=== PATIENT | male | born 1965 | race Caucasian/White ===

== ENCOUNTER 2024-10-03 08:55 | Outpatient (OUT) | payer SELFPAY ==
--- NOTE | 2024-10-03 09:02 | ECG_ITS ---
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
[2024-10-03 09:47] LABS: Basophils Percent Auto 0.5 % (0.2-2.0); Eosinophils Absolute Auto 0.3 10^3/uL (0.0-0.7); Eosinophils Percent Auto 3.9 % (0.9-7.0); Hematocrit 43.5 % (42.0-54.0); Hemoglobin 14.8 g/dL (14.0-18.0); Immature Granulocytes Abs Auto 0.02 10^3/uL (0.00-0.03); Immature Granulocytes Pct Auto 0.3 % (0.0-0.5); Lymphocytes Absolute Auto 1.8 10^3/uL (1.2-3.8); Lymphocytes Percent Auto 27.4 % (20.5-60.0); Mean Corpuscular Hemoglobin 29.9 pg (25.9-34.0); Mean Corpuscular Volume 87.9 fL (80.0-94.0); Mean Platelet Volume 8.8 fL (9.5-13.5); Monocytes Absolute Auto 0.7 10^3/uL (0.3-0.8); Neutrophils Absolute Auto 3.8 10^3/uL (1.4-6.5); Neutrophils Percent Auto 57.9 % (43.0-75.0); Platelet Count 194 10^3/uL (150-450); Red Blood Count 4.95 10^6/uL (4.70-6.10); Red Cell Distribution Width 12.5 % (11.0-15.0); White Blood Count 6.6 10^3/uL (4.0-11.0)
--- NOTE | 2024-10-03 09:48 | PM.PRESUREVA ---
History of Present Illness History of Present Illness Chief complaint: left spermatocele s/p left hydrocelectomy Narrative: Patient presents for presurgical testing with a chief complaint of of testicular pain. The patient states he has been self draining his testicle. He denies any urinary complaints at this time. He does have a history of hypertension and elevated cholesterol, and states he takes his carvedilol and amlodipine as directed but could not take his atorvastatin due to muscle aches. Review of Systems ROS Narrative REVIEW OF SYSTEMS: Negative except as stated in HPI, ten or more systems reviewed. Constitutional: No fever, chills, weakness ENT: No sore throat or epistaxis Cardiovascular: No edema, chest pain, palpitations, or activity intolerance Respiratory: No shortness of breath, cough, or wheezing Musculoskeletal: No joint pain or swelling Gastrointestinal: No abdominal pain, constipation, diarrhea, or vomiting Genitourinary: No dysuria or hematuria Neurological: No numbness, tingling, weakness, or headache Psychiatric: No mood changes [facility] (Updated 10/03/24 @ 09:38 by Mirtha Lockett NP) Hyperlipidemia ?E78.5 - Hyperlipidemia, unspecified (ICD-10) CAD (coronary artery disease) ?I25.10 - Atherosclerotic heart disease of [place] coronary artery without angina pectoris (ICD-10) Seasonal allergic rhinitis ?J30.2 - Other seasonal allergic rhinitis (ICD-10) Abnormal ECG ?R94.31 - Abnormal electrocardiogram [ECG] [EKG] (ICD-10) Sinusitis ?J32.9 - Chronic sinusitis, unspecified (ICD-10) Bronchitis ?J40 - Bronchitis, not specified as acute or chronic (ICD-10) Varicocele ?I86.1 - Scrotal varices (ICD-10) Male hypogonadism ?E29.1 - Testicular hypofunction (ICD-10) Hydrocele ?N43.3 - Hydrocele, unspecified (ICD-10) Spermatocele ?N43.40 - Spermatocele of epididymis, unspecified (ICD-10) Elevated PSA ?R97.20 - Elevated prostate specific antigen [PSA] (ICD-10) Arthritis ?M19.90 - Unspecified osteoarthritis, unspecified site (ICD-10) Kidney stones ?N20.0 - Calculus of kidney (ICD-10) Hypertension ?I10 - Essential (primary) hypertension (ICD-10) High cholesterol ?E78.00 - Pure hypercholesterolemia, unspecified (ICD-10) Surgical History (Updated 10/03/24 @ 09:38 by Mirtha Lockett NP) History of dental surgery ?Z92.89 - Personal history of other medical treatment (ICD-10) H/O arthroscopic knee surgery ?Z98.890 - Other specified postprocedural states (ICD-10) History of ERCP ?Z98.890 - Other specified postprocedural states (ICD-10) History of hernia repair ?Z98.890 - Other specified postprocedural states (ICD-10) ?Z87.19 - Personal history of other diseases of the digestive system (ICD-10) History of hydrocelectomy ?Z98.890 - Other specified postprocedural states (ICD-10) History of cardiac catheterization ?Z98.890 - Other specified postprocedural states (ICD-10) Family History (Updated 10/03/24 @ 09:22 by Mirtha Lockett NP) Other Family history of hypertension Family history of stroke Social History (Updated 10/03/24 @ 09:19 by Mirtha Lockett NP) Within the past year, how often did you have a drink containing alcohol: 2-4 times a month Smoking status: Former smoker Non-prescribed substance use: denies use Previous occupational history: [employer] Highest level of school completed/degree received: high school graduate Meds Home Medications and Allergies Home Medications ?Medication ?Instructions ?Recorded ?Confirmed ?Type amlodipine 10 mg tablet 10 mg PO DAILY 10/03/24 10/03/24 History carvedilol 6.25 mg tablet 6.25 mg PO Q12H 10/03/24 10/03/24 History Allergies Allergy/AdvReac Type Severity Reaction Status Date / Time atorvastatin Allergy hand pain Verified 10/03/24 09:18 guaifenesin Allergy skin Verified 10/03/24 09:18 irritation ciprofloxacin (From Cipro) AdvReac Unknown Verified 10/03/24 09:18 Exam Narrative Exam Narrative: Constitutional: Awake, alert, comfortable, well-appearing, nontoxic, interactive, vital signs as charted Head: Normocephalic, atraumatic Neck: Supple, normal appearance, normal range of motion, no meningeal signs, no lymphadenopathy Respiratory: No respiratory distress, breath sounds clear Cardiovascular: Regular rate and rhythm, strong and regular heart tones Abdomen: Nontender, normal bowel sounds, soft, no CVA tenderness Musculoskeletal: Normal gait, no swelling or edema Skin: No rashes or induration, no lesions, only visible skin inspected Neuro: No neurological deficits, normal sensation Psychiatric: Oriented ?3, normal affect Assessment and Plan Assessment and Plan (1) Elevated PSA: (2) Spermatocele: Plan TRUS biopsy and left simple orchiectomy scheduled with Dr. Castellanos October 12, 2024. Review of cardiology office note dated 02/08/2024 states patient had an elevated blood pressure in the office but declined addition of another medication. He states he did not start Crestor as directed and does not take his baby aspirin for CAD. Patient had an elevated blood pressure here in presurgical testing. Notified Cheri at Dr. Castellanos office that the patient will need cardiac clearance.
[2024-10-03 10:01] LABS: BUN Creatinine Ratio 11.1; Calcium 9.5 mg/dL (8.5-10.1); Carbon Dioxide 28.8 mmol/L (21.0-32.0); Chloride 104 mmol/L (98-107); Estimated GFR (African America >60 (>=60 mL/min/1.73m^2); Estimated GFR (Non-African Ame >60 (>=60 mL/min/1.73m^2); Glucose 101 mg/dL (74-106); Potassium 3.8 mmol/L (3.5-5.1); Sodium 141 mmol/L (136-145)
[2024-10-03 10:06] LABS: INR 0.95; Partial Thromboplastin Time 29.9 sec (22.3-36.2); Prothrombin Time 10.1 sec (9.0-11.6)
== END 2024-10-03 08:56 | disposition home or self-care (01) ==
LOC: PST 08:58
PROVIDERS: Visit Provider Urology
DX: Z01.810 Encounter for preprocedural cardiovascular examination (principal); Z01.812 Encounter for preprocedural laboratory examination; R97.20 Elevated prostate specific antigen [PSA]; N43.40 Spermatocele of epididymis, unspecified; I10 Essential (primary) hypertension
CPT/HCPCS: 80048; 85025; 85610; 85730; 93005; G0463

== ENCOUNTER 2024-10-12 10:43 | Day surgery (SDC) | payer SELFPAY ==
[2024-10-03 09:29] VITALS: BP 173/91; PULSE 66; TEMP 36.5; O2SAT 98; BMI 31.5
[2024-10-03 09:32] VITALS: BP 165/89
[2024-10-12] VITALS (10 sets, daily range): BP systolic 132–156; BP diastolic 71–92; PULSE 64–84; TEMP 36.6; O2SAT 92–96; BMI 28.6
--- OUTSIDE RECORDS SUMMARY | 2024-10-12 11:06 | XMS_ITS | CCD ---
Author Organization [facility] Care Team Providers Care Customer Service Leader Name Role Phone MARIOPATRICIA ALMA Andrew Primary Care Physician Heraclio Burton CASTELLANOS ., DR VALDEZ Admitting Unavailable MISC, DR WEN Primary Care Unavailable CASTELLANOS ., DR VALDEZ Consulting Unavailable CASTELLANOS ., DR VALDEZ Attending Unavailable ALMA TAVERAS Consulting Unavailable JOSEF DICKENS Consulting Unavailable CASTELLANOS ., DR VALDEZ Attending Unavailable REQUEST, DR NONE LISTED Primary Care Unavaila ble CASTELLANOS ., DR VALDEZ Admitting Unavailable CASTELLANOS ., DR VALDEZ Admitting Unavailable MISC, DR WEN Primary Care Unavailable CASTELLANOS ., DR VALDEZ Consulting Unavailable CASTELLANOS ., DR VALDEZ Attending Unavailable CASTELLANOS ., DR VALDEZ Attending Unavailable REQUEST, NONE LISTED Primary Care Unavaila ble CASTELLANOS ., DR VALDEZ Admitting Unavailable CASTELLANOS ., DR VALDEZ Consulting Unavailable LORENZA DE LEÓN Consulting Unavailable REQUEST, NONE LISTED Primary Care Unavaila ble CASTELLANOS ., DR VALDEZ Admitting Unavailable CASTELLANOS ., DR VALDEZ Consulting Unavailable CASTELLANOS ., DR VALDEZ Attending Unavailable CASTELLANOS, Quan Reid Attending Unavailable CASTELLANOS, Quan Reid Attending Unavailable CASTELLANOS, Quan Reid Attending Unavailable CASTELLANOS, Quan R Admitting Unavailable CASTELLANOS, Quan R Attending Unavailable CASTELLANOS, Quan R Attending Unavailable CASTELLANOS, Quan R Attending Unavailable CASTELLANOS, Quan R Admitting Unavailable CASTELLANOS, Quan Reid Attending Unavailable CASTELLANOS, Quan Reid Admitting Unavailable NELY MURILLO Referring Unavailable NURIA AN Attending Unavailable MOADALBERTO CUENCA Attending Unavailable CASTELLANOS, Quan Reid Attending Unavailable CASTELLANOS, Quan Reid Admitting Unavailable CASTELLANOS, Quan Reid Attending Unavailable Allergies Allergy Classification Reported Allergen(s) Allergy Type Date of Onset Reaction(s) Facility (16 sources) guaiFENesin; Translations: [guaifenesin] Drug Allergy 2 unknown [facility] Comment on above: Outside Source Comme nt: itching after several days of med (15 sources) Ciprofloxacin; Translations: [ciprofloxacin] Drug Allergy 3 rash, Eruption of skin (disorder) [facility] (1 source) guaiFENesin Drug Allergy [facility] Repository (1 source) atorvastatin; Translations: [ATORVASTATIN] Drug Allergy 4 [facility] Repository (1 source) rosuvastatin; Translations: [ROSUVASTATIN] Drug Allergy 5 [facility] Repository Medications Current Medications Medication Drug Class(es) Dates Sig (Normalized) Sig (Original) amLODIPine 10 mg oral tablet (12 sources) Dihydropyridine Calcium Channel Nehemias Start: 11-25-2021 take 1 mg by mouth once daily amLODIPine 10 mg Tab mg tab(s), Oral, Daily, Refills(s) 0 Start Date: 11/25/21 Status: Ordered atorvastatin 40 mg oral tablet (10 sources) HMG-CoA Reductase Inhibitor Start: 11-06-2022 atorvastatin 40 mg Tab Refills(s) 0 Start Date: 11/06/22 Status: Ordered Glucosamine (12 sources) Start: 11-28-2021 glucosamine Oral, Refills(s) 0 Start Date: 11/28/21 Status: Ordered Problems Problem Classification Problem Date Documented Date Episodic/Chronic Abdominal hernia (12 sources) Left inguinal hernia 11-28-2021 Episodic Calculus of urinary tract (20 sources) Kidney stone; Translations: [Personal history of urinary calculi] Onset: 10-16-2022 11-28-2021 Episodic Coronary atherosclerosis and other heart disease (2 sources) 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; Translations: [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] Onset: 10-04-2024 Chronic Disorders of lipid metabolism (2 sources) Mixed hyperlipidemia; Translations: [Mixed hyperlipidemia] Onset: 10-04-2024 Chronic Essential hypertension (15 sources) Hypertensive disorder; Translations: [Essential (primary) hypertension] Onset: 10-16-2022 11-28-2021 Chronic Genitourinary symptoms and ill-defined conditions (1 source) Nocturia; Translations: [NOCTURIA] Onset: 10-16-2022 Episodic Other diseases of veins and lymphatics (12 sources) Varicocele; Translations: [Scrotal varices] Onset: 11-06-2022 Episodic Other endocrine disorders (2 sources) Testicular hypofunction; Translations: [Testicular hypofunction] Onset: 04-21-2023 Chronic Other endocrine disorders (8 sources) Male hypogonadism 04-21-2023 Chronic Other female genital disorders (8 sources) Disorder of reproductive system 04-21-2023 Episodic Other male genital disorders (6 sources) Hydrocele of testis; Translations: [Hydrocele, unspecified] Onset: 11-28-2021 Episodic Other male genital disorders (3 sources) Cyst of testis 11-28-2021 Episodic Other male genital disorders (12 sources) Disorder of male genital organ 11-28-2021 Episodic Other male genital disorders (5 sources) Hydrocele, unspecified; Translations: [HYDROCELE UNSPECIFIED] Onset: 10-08-2022 Episodic Other male genital disorders (5 sources) Spermatocele; Translations: [Spermatocele of epididymis, unspecified] Onset: 08-28-2024 08-28-2024 Episodic Other screening for suspected conditions (not mental disorders or infectious disease) (4 sources) Encounter for screening for malignant neoplasm of prostate; Translations: [Screening for malignant neoplasm done] Onset: 08-28-2024 Episodic Other upper respiratory infections (4 sources) Chronic sinusitis; Translations: [Chronic sinusitis, unspecified] Onset: 04-20-2022 11-28-2021 Chronic Residual codes; unclassified (1 source) Past history of procedure; Translations: [Other specified postprocedural states] Onset: 08-28-2024 Episodic Spondylosis; intervertebral disc disorders; other back problems (1 source) Cervicalgia Episodic Unclassified (1 source) CONTACT W/AND (SUSP) EXPOS COVID-19; Translations: [CONTACT W/AND (SUSP) EXPOS COVID-19] Onset: 04-20-2022 Unclassified (4 sources) Patient encounter status 08-28-2024 Results Test Name Value Interpretation Reference Range Facility Office Visiton 10-04-2024 Follow-up visit [id number] Jah Byers 1965 M Date Provider Department Iron 10/04/2024 ADALBERTO HUNT [facility] Family History Problem Relation Age of Onset Stroke Mother Clotting disorder Mother Hypertension Father Hypertension Sister Family Status - Relation Status Age at Mother Father Sister Level of Service:30316 [place] OFFICE/OUTPATIENT ESTABLISHED MOD MDM 30 MIN Reason for Visit and Comments: Follow-up [179409] Pre-op Exam [[id number]] Normal [facility] Lab - Other Lab [facility] Lab - Other Lab Results [id number]# 1.00OTGTIFF [facility] Ambulatory Visit Summaryon 0 09-13-2024 Ambulatory Visit Summary Ambulatory Visit Summary JAH BYERS :1965 Visit Date:09/13/2024 Ambulatory Visit Instructions Your Care Team Attending Physician - HEATHER VELA, Quan Reid Primary Care Physician - ROSEANNA VELA, ALMA Morales This Is Your Medications List amlodipine (amLODIPine 10 mg Tab) atorvastatin (atorvastatin 40 mg Tab) glucosamine Procedures Performed Left hydrocelectomy (10/08/2022), History of hernia repair (10/22/2021), ERCP (08/09/1984). What to do next Scheduled Follow-Up Appointments Wednesday 9:15 AM EDT With: HEATHER VELA, Quan Reid Where: [facility] [place] [id number]- Medications What How Much When Instructions Unchanged amlodipine (amLODIPine 10 mg Tab) Every day Unchanged atorvastatin (atorvastatin 40 mg Tab) Unchanged glucosamine Allergies ciprofloxacin (Eruption) guaiFENesin (unknown) Problems Ongoing - Any problem that you are currently receiving treatment for. History of kidney stones Hydrocele Hypertension Hypogonadism male Kidney stones Left hydrocele Left inguinal hernia Screening PSA (prostate specific antigen) Spermatocele Status post repair of hydrocele Varicocele Patient Survey You may receive a survey via text or e-mail asking about your office visit. Please share your experience with us by completing your survey. We appreciate your feedback and thank you for choosing us for your care. Normal [facility] CHEMISTRYOrdered By: SYSTEM SYSTEM on 09-13-2024 Free PSA [Mass/Vol] 0.3 ng/mL Invalid Interpretation Code Remisol Chem Comment on above: Interpretive Data: T he concentration of free PSA and total PSA determined with assays from different manufacturers can vary due to differences in assay methods and specificity. Values obtained with different staff psychiatrist's assays cannot be used interchangeably. The methodology used to obtain this result was chemiluminescence using Eli Washington's Access Hybritech PSA reagent and Access Hybritech free PSA reagent. Free PSA/Total PSA [Mass fraction] 12.0 % Low >=25.0% Remisol Chem Prostate specific Ag [Mass/Vol] 2.5 ng/mL Normal 0.1 - 3.5 ng/mL Remisol Chem Comment on above: Interpretive Data: T he concentration of PSA determined by different manufacturers can vary due to differences in assay methods and reagent specificity. Values obtained from different assay methods cannot be used interchangeably. The methodology used for this result was chemiluminescence using Eli Hilda's Access Hybritech PSA reagent. Lab - Other Lab [facility] Lab - Other Lab Results [id number]# 1.00OTGTIFF [facility] CHEMISTRYOrdered By: SYSTEM SYSTEM on 08-28-2024 Prostate specific Ag [Mass/Vol] 2.6 ng/mL Normal 0.1 - 3.5 ng/mL Remisol Chem Comment on above: Interpretive Data: T he concentration of PSA determined by different manufacturers can vary due to differences in assay methods and reagent specificity. Values obtained from different assay methods cannot be used interchangeably. The methodology used for this result was chemiluminescence using Eli Hilda's Access Hybritech PSA reagent. PSA Totalon 08-28-2024 Prostate specific Ag [Mass/Vol] 2.6 ng/mL Normal 0.1-3.5 [facility] Comment on above: Result Comment: The concentration of PSA determined by different manufacturers can vary due to differences in assay methods and reagent specificity. Values obtained from different assay methods cannot be used interchangeably. The methodology used for this result was chemiluminescence using Eli Washington's Access Hybritech PSA reagent. Performed By: #### 1 [id number] #### [facility] [address] [place] [address] Urology Office/Clinic Noteon 08-28-2024 Urology Office/Clinic Note Urology Office/Clinic Note Chief Complaint hydrocele HPI Staff 59yr old male pt here to discuss hydrocele & possible removal. Pt has been draining 1x per week. Would like to discuss cause of it. Wants to make sure hernia surgery about 4yrs ago did not cause hydrocele. Pt refused to provide urine sample today. Previous Dx: left hydrocele S/P left hydrocelectomy done 10/08/22, IO hydrocele aspiration 70 cc 04/21/23 Dysuria: denies Incomplete bladder emptying: denies Hematuria: denies Frequency: denies Urgency: denies Nocturia: denies Stream: good stream Leaking: denies Post void dripping: denies Wearing pads/ Depends: denies Urge incontinence: denies Stress incontinence: denies Incontinence without Sensory Awareness: denies Abdominal pain: denies Flank pain: denies Sexual complaints: _ History of Present Illness Tests reviewed: none I have reviewed the previous health record information and history for this patient from Dr. Castellanos. I have reviewed and verified the staff HPI to be accurate for this encounter. Review of Systems PHQ Score Initial Depression Screen Score: 2 SCORE ROS - Provider Constitutional: denies weight loss, denies hot flashes. Eyes: denies eye problems. Gastrointestinal: denies nausea, denies vomiting. Cardiovascular: denies chest pain or angina. Integumentary: no dryness Musculoskeletal: denies musculoskeletal symptoms. ENMT: denies otolaryngeal symptoms. Respiratory: no shortness of breath. Heme/Lymph: denies easy bleeding tendency, denies easy bruising tendency. Psychiatric: no confusion, no anxiety. Genitourinary: See HPI. Physical Exam Vitals & Measurements T: 37 ???C(Oral) HR: 73(Peripheral) RR: 18 BP: 134/79 HT: 73 in HT: 185 cm WT: 104 kg WT: 229.28 lb BMI: 30.39 General Appearance: alert, no distress, well nourished, well developed male. Genitourinary: normal scrotum, normal testes, normal urethra, abnormalL side with 6-7cm spermatocele epididymis, normal vas deferens/spermatic cord. Flank Pain: none. Bladder: nonpalpable. Assessment/Plan Testosterone: 04/28/23 - 497. [1] 1. Spermatocele (N43.40: Spermatocele of epididymis, unspecified) 07/21/23 OV: Had L sided inguinal hernia repair, fatty tumor was removed per pt in October of 2020 or 2021. Pt has been draining 25-30 cc every 4-5 days when swelling becomes intolerable. [2] PE: moderate sized L hydrocele and scrotal wall ecchymosis. Options included repeat hydrocelectomy vs L orchiectomy. Discussed pros and cons of both. Per pt, never completely normalized after surgery, this info supports proceeding with L orchiectomy. Pt wanted to think about options. Scrotal US 07/27/23 Lyman - Small bilateral hydroceles are smaller than what was noted on 03/13/22 study. Today pt reports he has been draining ~35-40 cc 1x/wk. Shares it becomes large and uncomfortable if he does not drain hydrocele. Has concerns about correlation with prior L-sided hernia repair still, noticed ~2 mos after surgery. States he is now interested in orchiectomy given significant bother. Per exam today, appears more consistent with spermatocele vs hydrocele. Discussed the options. There is no absolute indication that he needs this repaired. Discussed risks/benefits of spermatocelectomy vs orchiectomy. Also discussed chance of recurrence of this scrotal fluid collection, which may require another procedure in the future. Pt wishes to proceed with simple L orchiectomy. -Will schedule simple left orchiectomy. Risks and Benefits were discussed with the patient. These include bleeding, infection, pain, and need for additional procedures. Pre-op consent reviewed with and obtained from patient. Order General anesthesia. 2. Status post repair of hydrocele (Z98.890: Other specified postprocedural states) S/p L hydrocelectomy 10/08/22. IO hydrocele aspiration 70 cc 04/21/23. [3] 3. Screening PSA (prostate specific antigen) (Z12.5: Encounter for screening for malignant neoplasm of prostate) Pt does not think he has had a PSA level drawn. Amenable to have this drawn IO today. Will call pt with results. Follow-up With When Contact Information HEATHER VELA, Quan Reid, URL [facility] [address], [place] [address]- [phone] Additional Instructions: sched simple L orchiectomy Patient Education Orchiectomy, Care After Orchiectomy Spermatocele I, Arleen Yan, personally scribed for Dr. Castellanos on 08/28/2024 12:18:59. . Documentation recorded by the scribeArleen, accurately reflects the services(s) I performed and decisions made by me. Authenticated by Dr. Castellanos on 08/28/2024 12:39:13. .. Problem List/Past Medical History Ongoing History of kidney stones Hydrocele Hypertension Hypogonadism male Kidney stones Left hydrocele Left inguinal hernia Spermatocele Status post repair of hydrocele Varicocele Historical No qualifying data Proced (more content not included)... Normal [facility] Comment on above: Result Comment: Elec tronically Signed By: Quan CASTELLANOS MD\.br\Date and Time Signed: 08/28/24 12:39 EST\.br\Electronically Co-Signed By: Arleen Yan\.br\Date and Time Co-Signed: 08/28/24 12:19 EST\.br\Electronically Co-Signed By: Arleen Yan\.br\Date and Time Co-Signed: 08/28/24 12:21 EST Office Visiton 02-08-2024 Follow-up visit [id number] Jah Byers 1965 M Date Provider Department Center 02/08/2024 [id number] AN [facility] Family History Problem Relation Age of Onset Stroke Mother Clotting disorder Mother Hypertension Father Hypertension Sister Family Status - Relation Status Age at Mother Father Sister Level of Service:10229 [place] OFFICE/OUTPATIENT ESTABLISHED MOD MDM 30 MIN Normal [facility] Auth for Release of Medical Recordson 12-02-2023 Auth for Release of Medical Records [id number] .00TIFF Normal [facility] Orders Onlyon 11-12-2023 Orders Only [id number] Jah Byers 1965 M Date Provider Department Center 11/12/2023 [id number], HISTORICAL [facility] [place] Family History Problem Relation Age of Onset Stroke Mother Clotting disorder Mother Hypertension Father Hypertension Sister Family Status - Relation Status Age at Mother Father Sister Normal [facility] CBC AUTO DIFFon 10-05-2022 BASO # 0.0 103/ul Normal 0.0-0.1 [facility] Comment on above: Performed By: #### C BC #### [facility] [address] [address] [address] Ignacio Tristan Basophils/100 WBC (Bld) 0.4 % Normal 0.2-2.0 [facility] Comment on above: Performed By: #### C BC #### [facility] [address] [place] [address] [address] Ignacio Tristan EO # 0.3 103/ul Normal 0.0-0.7 [facility] Comment on above: Performed By: #### C BC #### [facility] [address] [place] [address] [address] Ignacio Tristan Eosinophils/100 WBC (Bld) 3.7 % Normal 0.9-7.0 [facility] Comment on above: Performed By: #### C BC #### [facility] [address] [place] [address] [address] Ignacio Tristan Erythrocyte distribution width (RBC) [Ratio] 12.3 % Normal 11.0-15.0 [facility] Comment on above: Performed By: #### C BC #### [facility] [address] [place] [address] Dr. Ignacio Tristan Hematocrit (Bld) [Volume fraction] 41.9 % Critically low 42.0-54.0 [facility] Comment on above: Performed By: #### C BC #### [facility] [address] [address] [address] Ignacio Tristan Hemoglobin (Bld) [Mass/Vol] 14.1 g/dL Normal 14.0-18.0 [facility] Comment on above: Performed By: #### C BC #### [facility] [address] [address] [address] Ignacio Tristan IG # 0.01 10e3/ul Normal 0.00-0.03 [facility] Comment on above: Performed By: #### C BC #### [facility] [address] [place] [address] Dr. Ignacio Tristan IG % 0.1 % Normal 0.0-0.5 [facility] Comment on above: Performed By: #### C BC #### [facility] [address] [place] [address] Dr. Ignacio Tristan LYMPH # 1.9 103/ul Normal 1.2-3.8 [facility] Comment on above: Performed By: #### C BC #### [facility] [address] [place] [address] Dr. Ignacio Tristan Lymphocytes/100 WBC (Bld) 26.4 % Normal 20.5-60.0 [facility] Comment on above: Performed By: #### C BC #### [facility] [address] [place] [address] Dr. Ignacio Tristan MANUAL DIFF REQ NO Normal [facility] Comment on above: Performed By: #### C BC #### [facility] [address] [place] [address] Dr. Ignacio Tristan MCH (RBC) [Entitic mass] 29.2 pg Normal 25.9-34.0 [facility] Comment on above: Performed By: #### C BC #### [facility] [address] [place] [address] Dr. Ignacio Tristan MCHC (RBC) [Mass/Vol] 33.7 g/dL Normal 29.9-35.2 [facility] Comment on above: Performed By: #### C BC #### [facility] [address] [place] [address] Dr. Ignacio Tristan MCV (RBC) [Entitic vol] 86.7 fL Normal 80.0-94.0 [facility] Comment on above: Performed By: #### C BC #### [facility] [address] [place] [address] Dr. Ignacio Tristan MONO # 0.6 103/ul Normal 0.3-0.8 [facility] Comment on above: Performed By: #### C BC #### [facility] [address] [place] [address] Dr. Ignacio Tristan Monocytes/100 WBC (Bld) 8.8 % Normal 1.7-12.0 [facility] Comment on above: Performed By: #### C BC #### [facility] [address] [place] [address] Dr. Ignacio Tristan NEUT # 4.3 103/ul Normal 1.4-6.5 [facility] Comment on above: Performed By: #### C BC #### [facility] [address] [place] [address] Dr. Ignacio Tristan Neutrophils/100 WBC (Bld) 60.6 % Normal 43.0-75.0 [facility] Comment on above: Performed By: #### C BC #### [facility] [address] [place] [address] Dr. Ignacio Tristan Platelet mean volume (Bld) [Entitic vol] 8.8 fL Critically low 9.5-13.5 [facility] Comment on above: Performed By: #### C BC #### [facility] [address] [place] [address] Dr. Ignacio Tristan PLT 169 103/ul Normal 150-450 [facility] Comment on above: Performed By: #### C BC #### [facility] [address] [place] [address] Dr. Ignacio Tristan RBC 4.83 106/ul Normal 4.70-6.10 [facility] Comment on above: Performed By: #### C BC #### [facility] [address] [place] [address] Dr. Ignacio Tristan WBC 7.0 103/ul Normal 4.0-11.0 [facility] Comment on above: Performed By: #### C BC #### [facility] [address] [place] [address] Dr. Ignacio Tristan PROF CHEM 8 (BAS METB)on Anion gap [Moles/Vol] 10.6 mmol/L Normal [facility] Comment on above: Performed By: #### B MP #### [facility] [address] [place] [address] Dr. Ignacio Tristan Calcium [Mass/Vol] 8.9 mg/dL Normal 8.5-10.1 [facility] Comment on above: Performed By: #### B MP #### [facility] [address] [address] [address] Ignacio Tristan Chloride [Moles/Vol] 102 mmol/L Normal 98-107 [facility] Comment on above: Performed By: #### B MP #### [facility] [address] [address] [address] Ignacio Tristan CO2 [Moles/Vol] 28.5 mmol/L Normal 21.0-32.0 [facility] Comment on above: Performed By: #### B MP #### [facility] [address] [place] [address] Dr. Ignacio Tristan Creatinine [Mass/Vol] 0.75 mg/dL Normal 0.70-1.30 [facility] Comment on above: Performed By: #### B MP #### [facility] [address] [address] [address] Ignacio Tristan EGFR-AF URUGUAYAN >60 Normal >=60 [facility] Comment on above: Performed By: #### B MP #### [facility] [address] [place] [address] [address] Ignacio Tristan EGFR-NON AF URUGUAYAN >60 Normal >=60 [facility] Comment on above: Performed By: #### B MP #### [facility] [address] [address] [address] Ignacio Tristan Glucose [Mass/Vol] 101 mg/dL Normal 74-106 [facility] Comment on above: Performed By: #### B MP #### [facility] [address] [address] [address] Ignacio Tristan Potassium [Moles/Vol] 4.1 mmol/L Normal 3.5-5.1 [facility] Comment on above: Performed By: #### B MP #### [facility] [address] [place] [address] Dr. Ignacio Tristan Sodium [Moles/Vol] 137 mmol/L Normal 136-145 [facility] Comment on above: Performed By: #### B MP #### [facility] [address] [place] [address] Dr. Ignacio Tristan Urea nitrogen [Mass/Vol] 14.0 mg/dL Normal 7.0-18.0 [facility] Comment on above: Performed By: #### B MP #### [facility] [address] [place] [address] Dr. Ignacio Tristan Urea nitrogen/Creatinine [Mass ratio] 18.7 mg/mg Normal [facility] Comment on above: Performed By: #### B MP #### [facility] [address] [place] [address] Dr. Ignacio Tristan PROTIMEon 10-05-2022 INR Coag (PPP) [Relative time] {INR} Normal [facility] Comment on above: Performed By: #### P TT, PT #### [facility] [address] [place] [address] Dr. Ignacio Tristan INR GUIDELINES SEE BELOW Normal [facility] Comment on above: Result Comment: ERIK RED INR: 2.0 - 3.0 CONDITIONS NOT LISTED BELOW 2.5 - 3.5 FOR PROSTHETIC HEART VALVE REPLACEMENT 2.5 - 3.5 RECURRENT THROMBOSIS Performed By: #### P TT, PT #### [facility] [address] [place] [address] Dr. Ignacio Tristan PT Coag (PPP) [Time] 9.8 s Normal 9.0-11.6 [facility] Comment on above: Performed By: #### P TT, PT #### [facility] [address] [place] [address] Dr. Ignacio Tristan PTTon 10-05-2022 aPTT Coag (Bld) [Time] 27.2 s Normal 22.3-36.2 [facility] Comment on above: Performed By: #### P TT, PT #### [facility] [address] [place] [address] Dr. Ignacio Tristan CBC AUTO DIFFon 04-15-2022 BASO # 0.1 103/ul Normal 0.0-0.1 [facility] Comment on above: Performed By: #### C BC #### [facility] [address] [place] [address] Dr. Ignacio Tristan Basophils/100 WBC (Bld) 0.6 % Normal 0.2-2.0 [facility] Comment on above: Performed By: #### C BC #### [facility] [address] [place] [address] Dr. Ignacio Tristan EO # 0.4 103/ul Normal 0.0-0.7 [facility] Comment on above: Performed By: #### C BC #### [facility] [address] [place] [address] Dr. Ignacio Tristan Eosinophils/100 WBC (Bld) 4.4 % Normal 0.9-7.0 [facility] Comment on above: Performed By: #### C BC #### [facility] [address] [place] [address] Dr. Ignacio Tristan Erythrocyte distribution width (RBC) [Ratio] 12.5 % Normal 11.0-15.0 [facility] Comment on above: Performed By: #### C BC #### [facility] [address] [place] [address] Dr. Ignacio Tristan Hematocrit (Bld) [Volume fraction] 41.7 % Critically low 42.0-54.0 [facility] Comment on above: Performed By: #### C BC #### [facility] [address] [place] [address] Dr. Ignacio Tristan Hemoglobin (Bld) [Mass/Vol] 14.1 g/dL Normal 14.0-18.0 [facility] Comment on above: Performed By: #### C BC #### [facility] [address] [place] [address] Dr. Ignacio Tristan IG # 0.02 10e3/ul Normal 0.00-0.03 [facility] Comment on above: Performed By: #### C BC #### [facility] [address] [place] [address] Dr. Ignacio Tristan IG % 0.2 % Normal 0.0-0.5 [facility] Comment on above: Performed By: #### C BC #### [facility] [address] [place] [address] Dr. Ignacio Tristan LYMPH # 1.8 103/ul Normal 1.2-3.8 [facility] Comment on above: Performed By: #### C BC #### [facility] [address] [place] [address] Dr. Ignacio Tristan Lymphocytes/100 WBC (Bld) 21.4 % Normal 20.5-60.0 [facility] Comment on above: Performed By: #### C BC #### [facility] [address] [place] [address] Dr. Ignacio Tristan MANUAL DIFF REQ NO Normal [facility] Comment on above: Performed By: #### C BC #### [facility] [address] [place] [address] Dr. Ignacio Tristan MCH (RBC) [Entitic mass] 29.4 pg Normal 25.9-34.0 [facility] Comment on above: Performed By: #### C BC #### [facility] [address] [place] [address] Dr. Ignacio Tristan MCHC (RBC) [Mass/Vol] 33.8 g/dL Normal 29.9-35.2 [facility] Comment on above: Performed By: #### C BC #### [facility] [address] [place] [address] Dr. Ignacio Tristan MCV (RBC) [Entitic vol] 87.1 fL Normal 80.0-94.0 [facility] Comment on above: Performed By: #### C BC #### [facility] [address] [place] [address] Dr. Ignacio Tristan MONO # 0.8 103/ul Normal 0.3-0.8 [facility] Comment on above: Performed By: #### C BC #### [facility] [address] [place] [address] Dr. Ignacio Tristan Monocytes/100 WBC (Bld) 9.6 % Normal 1.7-12.0 [facility] Comment on above: Performed By: #### C BC #### [facility] [address] [address] [address] Ignacio Tristan NEUT # 5.2 103/ul Normal 1.4-6.5 [facility] Comment on above: Performed By: #### C BC #### [facility] [address] [place] [address] Dr. Ignacio Tristan Neutrophils/100 WBC (Bld) 63.8 % Normal 43.0-75.0 [facility] Comment on above: Performed By: #### C BC #### [facility] [address] [place] [address] Dr. Ignacio Tristan Platelet mean volume (Bld) [Entitic vol] 8.8 fL Critically low 9.5-13.5 [facility] Comment on above: Performed By: #### C BC #### [facility] [address] [place] [address] Dr. Ignacio Tristan PLT 187 103/ul Normal 150-450 [facility] Comment on above: Performed By: #### C BC #### [facility] [address] [place] [address] Dr. Ignacio Tristan RBC 4.79 106/ul Normal 4.70-6.10 [facility] Comment on above: Performed By: #### C BC #### [facility] [address] [place] [address] Dr. Ignacio Tristan WBC 8.2 103/ul Normal 4.0-11.0 [facility] Comment on above: Performed By: #### C BC #### [facility] [address] [place] [address] Dr. Ignacio Tristan Covid-19 PCR (CVDTB)on SARS-CoV-2 (COVID-19) RNA YOLY+probe Ql (Unsp spec) Not detected Normal NOT DETECTED [facility] Comment on above: Result Comment: This test is not yet approved or cleared by the [place] FDA. When there are no FDA-approved or cleared tests available, and other criteria are met, FDA can make tests available under an emergency access mechanism called an Emergency Use Authorization (EUA). The EUA for this test is supported by the [place] of Health and Human Service's (HHS's) declaration that circumstances exist to justify the emergency use of in vitro diagnostics for the detection and/or diagnosis of the virus that causes COVID-19. This EUA will remain in effect (meaning this test can be used) for the duration of the COVID-19 declaration justifying emergency of IVDs, unless it is terminated or revoked by FDA (after which the test may no longer be used). When diagnostic testing is negative, the possibility of a false negative should be considered in the context of a patient's recent exposures and the presence of clinical signs and symptoms consistent with SARS-CoV-2. Performed By: #### C VDTB #### [facility] [address] [place] [address] Dr. Ignacio Tristan PROF CHEM 8 (BAS METB)on Anion gap [Moles/Vol] 10.4 mmol/L Normal [facility] Comment on above: Performed By: #### B MP #### [facility] [address] [place] [address] Dr. Ignacio Tristan Calcium [Mass/Vol] 9.1 mg/dL Normal 8.5-10.1 [facility] Comment on above: Performed By: #### B MP #### [facility] [address] [place] [address] Dr. Ignacio Tristan Chloride [Moles/Vol] 104 mmol/L Normal 98-107 [facility] Comment on above: Performed By: #### B MP #### [facility] [address] [place] [address] Dr. Ignacio Tristan CO2 [Moles/Vol] 29.3 mmol/L Normal 21.0-32.0 [facility] Comment on above: Performed By: #### B MP #### [facility] [address] [place] [address] Dr. Ignacio Tristan Creatinine [Mass/Vol] 0.95 mg/dL Normal 0.70-1.30 [facility] Comment on above: Performed By: #### B MP #### [facility] [address] [place] [address] Dr. Ignacio Tristan EGFR-AF URUGUAYAN >60 Normal >=60 [facility] Comment on above: Performed By: #### B MP #### [facility] [address] [address] [address] Ignacio Tristan EGFR-NON AF URUGUAYAN >60 Normal >=60 [facility] Comment on above: Performed By: #### B MP #### [facility] [address] [address] [address] Ignacio Tristan Glucose [Mass/Vol] 103 mg/dL Normal 74-106 [facility] Comment on above: Performed By: #### B MP #### [facility] [address] [address] [address] Ignacio Tristan Potassium [Moles/Vol] 3.7 mmol/L Normal 3.5-5.1 [facility] Comment on above: Performed By: #### B MP #### [facility] [address] [address] [address] Ignacio Tristan Sodium [Moles/Vol] 140 mmol/L Normal 136-145 [facility] Comment on above: Performed By: #### B MP #### [facility] [address] [address] [address] Ignacio Tirstan Urea nitrogen [Mass/Vol] 14.0 mg/dL Normal 7.0-18.0 [facility] Comment on above: Performed By: #### B MP #### [facility] [address] [address] [address] Igancio Tristan Urea nitrogen/Creatinine [Mass ratio] 14.7 mg/mg Normal [facility] Comment on above: Performed By: #### B MP #### [facility] [address] [address] [address] Ignacio Tristan PROTIMEon 04-15-2022 INR Coag (PPP) [Relative time] {INR} Normal [facility] Comment on above: Performed By: #### P TT, PT #### [facility] [address] [place] [address] Dr. Ignacio Tristan INR GUIDELINES SEE BELOW Normal [facility] Comment on above: Result Comment: ERIK RED INR: 2.0 - 3.0 CONDITIONS NOT LISTED BELOW 2.5 - 3.5 FOR PROSTHETIC HEART VALVE REPLACEMENT 2.5 - 3.5 RECURRENT THROMBOSIS Performed By: #### P TT, PT #### [facility] [address] [place] [address] Dr. Ignacio Tristan PT Coag (PPP) [Time] 9.5 s Normal 9.0-11.6 [facility] Comment on above: Performed By: #### P TT, PT #### [facility] [address] [place] [address] Dr. Ignacio Tristan PTTon 04-15-2022 aPTT Coag (Bld) [Time] 26.2 s Normal 22.3-36.2 [facility] Comment on above: Performed By: #### P TT, PT #### [facility] [address] [place] [address] Dr. Ignacio Tristan Vital Signs Date Time Vital Sign Value Performing Clinician Facility 08-28-2024 11:32-0500 Blood Pressure Location Quan CASTELLANOS [facility] 08-28-2024 11:32-0500 Body temperature 98.6 [degF] Quan CASTELLANOS [facility] 08-28-2024 11:32-0500 Diastolic blood pressure 79 mm[Hg] Quan CASTELLANOS [facility] 08-28-2024 11:32-0500 Heart rate 73 /min Quan CASTELLANOS [facility] 08-28-2024 11:32-0500 Respiratory rate 18 /min Quan CASTELLANOS [facility] 08-28-2024 11:32-0500 Systolic blood pressure 134 mm[Hg] Quan CASTELLANOS [facility] 07-21-2023 09:28-0500 Blood Pressure Location Quan CASTELLANOS [facility] 07-21-2023 09:28-0500 Diastolic blood pressure 78 mm[Hg] Quan CASTELLANOS [facility] 07-21-2023 09:28-0500 Heart rate 77 /min Quan CASTELLANOS [facility] 07-21-2023 09:28-0500 Systolic blood pressure 141 mm[Hg] Quan CASTELLANOS [facility] 04-21-2023 13:04-0400 Blood Pressure Location Quan CASTELLANOS [facility] 04-21-2023 13:04-0400 Diastolic blood pressure 83 mm[Hg] Quan CASTELLANOS [facility] 04-21-2023 13:04-0400 Heart rate 77 /min Quan CASTELLANOS [facility] 04-21-2023 13:04-0400 Systolic blood pressure 125 mm[Hg] Quan CASTELLANOS [facility] 02-05-2023 08:33-0400 Blood Pressure Location Quan CASTELLANOS [facility] 02-05-2023 08:33-0400 Diastolic blood pressure 84 mm[Hg] Quan CASTELLANOS [facility] 02-05-2023 08:33-0400 Heart rate 90 /min Quan CASTELLANOS [facility] 02-05-2023 08:33-0400 Respiratory rate 16 /min Quan CASTELLANOS [facility] 02-05-2023 08:33-0400 Systolic blood pressure 134 mm[Hg] Quan CASTELLANOS [facility] 05-12-2022 09:40-0400 Body height 182.88 cm Heraclio Burton Other [facility] Other 05-12-2022 09:40-0400 Body mass index (BMI) [Ratio] 30.92 kg/m2 Heraclio Burton Other [facility] Other 05-12-2022 09:40-0400 Body weight 103.42 kg Heraclio Burton Other [facility] Other 11-28-2021 09:28-0400 Blood Pressure Location Quan CASTELLANOS [facility] 11-28-2021 09:28-0400 Diastolic blood pressure 97 mm[Hg] Quan CASTELLANOS [facility] 11-28-2021 09:28-0400 Heart rate 88 /min Quan CASTELLANOS [facility] 11-28-2021 09:28-0400 Systolic blood pressure 160 mm[Hg] Quanherbert CASTELLANOS [facility] Encounters Encounter Date Encounter Type Care Provider Facility Start: 11-03-2024 ambulatory Quan Clarki ty:LAMAR George Start: 11-01-2024 ambulatory Quan Clarki ty:LAMAR Wilkins Start: 10-12-2024 ambulatory Quan Clarki ty:[id number] Start: 10-04-2024 End: 10-04-2024 ambulatory [facility] Start: 10-04-2024 End: 10-04-2024 Encounter for preprocedural cardiovascular examination [facility] Start: 09-13-2024 End: 09-13-2024 Lab Drop off Quan CASTELLANOS [facility] Start: 09-13-2024 End: 09-13-2024 ambulatory Quan CASTELLANOS Facility:[facility] Start: 09-13-2024 End: 09-13-2024 Patient encounter procedure Quan CASTELLANOS [facility] Start: 08-28-2024 End: 08-28-2024 ambulatory Quan CASTELLANOS Facility:[facility] Start: 08-28-2024 End: 08-28-2024 Lab Drop off Quan CASTELLANOS [facility] Start: 08-28-2024 End: 08-28-2024 ambulatory Quan CASTELLANOS Facility:[facility] Start: 08-28-2024 End: 08-28-2024 Patient encounter procedure [facility]LLANOS [facility] Start: 02-08-2024 End: [facility] 11-11-2023 End: 11-11-[facility]23 [facility] Start: 07-21-2023 End: 07-21-2023 Patient encounter procedure Quan CASTELLANOS [facility] Start: 04-28-2023 End: 04-28-2023 Lab Drop off Quan CASTELLANOS [facility] Start: 04-28-2023 End: 04-28-2023 Patient encounter procedure Quan R HEATHER [facility] Start: 04-21-2023 End: 04-21-2023 Patient encounter procedure Quan CASTELLANOS [facility] Start: 02-05-2023 End: 02-05-2023 Patient encounter procedure Quan R HEATHER [facility] Start: 11-06-2022 End: 11-06-2022 Patient encounter procedure Quan CASTELLANOS [facility] Start: 10-09-2022 Encounter for preprocedural laboratory examination DR QUAN CASTELLANOS . [facility] Start: 10-08-2022 End: 10-08-[address] QUAN CASTELLANOS . Facility:[facility] Start: 10-05-2022 End: 10-06-[address] QUAN CASTELLANOS . Facility:[facility] Start: 10-05-2022 End: 10-06-2022 Encounter for preprocedural laboratory examination DR QUAN CASTELLANOS . Facility:[facility] Start: 05-12-2022 End: 05-12-2022 ambulatory Heraclio Burton Other [facility] Other Start: 05-12-2022 Office outpatient ne w 20 minutes Heraclio Burton [facility] Start: 04-23-[address] QUAN CASTELLANOS . Fac ility:[facility] Start: 04-20-2022 Encounter for preprocedural cardiovascular examination DR QUAN CASTELLANOS . [facility] Start: 04-20-[address] NONE LISTED REQUEST Facility: Start: 04-15-2022 End: 04-16-[address] QUAN CASTELLANOS . Facility:[facility] Start: 04-15-2022 End: 04-16-2022 Encounter for preprocedural cardiovascular examination DR QUAN CASTELLANOS . Facility:[facility] Start: 03-06-2022 End: 03-06-2022 Patient encounter procedure Quan CASTELLANOS [facility] Start: 11-28-2021 End: 11-28-2021 Patient encounter procedure Quan CASTELLANOS [facility] Procedures Date Procedure Procedure Detail Performing Clinician Start: 10-08-2022 Left hydrocelectomy Quan CASTELLANOS Start: 10-22-2021 History of hernia repair Quan CASTELLANOS Start: 08-09-1984 Endoscopic retrograde cholangiopancreatography Quan CASTELLANOS H/O: surgery Status post repa ir of hydrocele Quan CASTELLANOS Immunizations Immunization Date Immunization Notes Care Provider Antony llamas 03-27-2015 tetanus toxoid, redu yana diphtheria toxoid, and acellular pertussis vaccine, adsorbed Quan CASTELLANOS [facility] Payers Date Payer Category Payer Unknown [id number] 2.16.84 [id number] 1965 Unknown [id number] 2.16.84 [id number] 1965 Unknown [id number] 2.16.84 [id number] 1965 Unknown [id number] 2.16.84 [id number] 1965 Unknown [id number] 2.16.84 [id number] 1965 Unknown [id number] 2.16.8 [id number] 1965 Unknown [id number] 2.16.8 [id number] 1965 Unknown [id number] 2.16.8 [id number] 1965 Unknown [id number] 2.16.8 [id number] 1965 Unknown [id number] 2.16.8 [id number] 1965 Unknown [id number] 2.16.8 [id number] 1959 Self-pay 1959 Self-pay [id number] Self-pay SELF PAY 2.16.8 [id number] Social History Date Type Detail Facility Start: 11-28-2021 End: 08-28-2024 Tobacco smoking status Never smoked tobacco (finding) [facility] Tobacco smoking status Never [facility] Sex Assigned At Male [facility] Functional Status Date Assessment Result Facility 08-28-2024 Functional Status N/A [facility] 07-21-2023 Functional Status N/A [facility] 04-21-2023 Functional Status N/A [facility] 02-05-2023 Functional Status N/A [facility] 11-06-2022 Functional Status N/A [facility] Clinical Notes 11-28-2021 to 10-04-2024 Note Date & Type Note Facility 10-04-2024 Note [facility] Subjective Jah Byers is a 59 y.o. year old male patient being seen for Follow-up and Pre-op Exam Patient here for 6 mo follow up mild CAD, hypertension, and hyperlipidemia. Also needs cleared for upcoming procedure with Dr. Castellanos, scheduled for 10/12/2024. Had labs and EKG yesterday. He was unable to tolerate rosuvastatin dye to myalgias. Patient denies chest pain, SOB, palpitations, and lightheadedness/syncope. Patient Active Problem List Diagnosis Abnormal stress test Allergic rhinitis Chronic sinusitis Disorder of male genital organs History of kidney stones Kidney stones Left inguinal hernia Primary hypertension Testicular cyst Varicocele CAD in [place] artery Hypogonadism male Left hydrocele Status post repair of hydrocele Hydrocele in adult Elevated PSA Screening PSA (prostate specific antigen) Spermatocele Family History Problem Relation Name Age of Onset Stroke Mother Clotting disorder Mother Hypertension Father Hypertension Sister Social History Tobacco Use Smoking status: Former Types: Cigarettes Smokeless tobacco: Current Substance Use Topics Alcohol use: Yes Comment: 2-3 times a month Drug use: Never TASHIA Jah is seen in follow-up. This is the first time I am meeting him. He usually follows with Dr. An. He is a 59-year-old man with history of coronary artery disease that is nonobstructive by cardiac catheterization in 2021 that was performed in the setting of abnormal stress test. He has hypertension on treatment. He has hyperlipidemia on treatment. He will be undergoing a prostate biopsy and left orchiectomy. Today he reports that he has been doing well. he denies chest pain, shortness of breath, palpitations, dizziness, syncope and leg edema. he has good exercise tolerance. There is no claudication. he has not been taking pravastatin nor atorvastatin due to side effects. He gets myalgia in the hands. Review of Systems Musculoskeletal: Positive for back pain and myalgias. Objective Visit Vitals BP 124/74 (BP Location: Right arm, Patient Position: Sitting) Pulse 96 Ht 1.854 m (6' 1 ) Wt 103 kg (227 lb) SpO2 96% BMI 29.95 kg/m??? Smoking Status Former BSA 2.3 m??? Physical Exam Constitutional: Appearance: He is well-developed. He is not ill-appearing. HENT: Head: Normocephalic and atraumatic. Nose: Nose normal. Eyes: General: No scleral icterus. Pupils: Pupils are equal, round, and reactive to light. Neck: Thyroid: No thyromegaly. Vascular: No JVD. Cardiovascular: Rate and Rhythm: Normal rate and regular rhythm. Pulses: Radial pulses are 2+ on the right side and 2+ on the left side. Heart sounds: Normal heart sounds. No murmur heard. No friction rub. No gallop. Pulmonary: Effort: Pulmonary effort is normal. No respiratory distress. Breath sounds: Normal breath sounds. No wheezing or rales. Chest: Chest wall: No tenderness. Abdominal: General: Bowel sounds are normal. There is no distension. Palpations: Abdomen is soft. Tenderness: There is no abdominal tenderness. Musculoskeletal: General: No swelling. Cervical back: Neck supple. Skin: General: Skin is warm and dry. Neurological: General: No focal deficit present. Mental Status: He is alert and oriented to person, place, and time. Psychiatric: Mood and Affect: Mood normal. Behavior: Behavior is cooperative. Judgment: Judgment normal. Allergies Allergies Allergen Reactions Atorvastatin Other Myalgias Guaifenesin Rosuvastatin Other Myalgias Ciprofloxacin Rash Medications Current Outpatient Medications: amLODIPine (Norvasc) 10 mg tablet, Take 1 tablet (10 mg) by mouth in the morning., Disp: 90 tablet, Rfl: 3 aspirin 325 mg tablet, Take 325 mg by mouth 1 (one) time., Disp: , Rfl: carvedilol (Coreg) 6.25 mg tablet, Take 1 tablet (6.25 mg) by mouth with breakfast and with evening meal., Disp: 180 tablet, Rfl: 3 atorvastatin (Lipitor) 40 mg tablet, Take 1 tablet (40 mg) by mouth at bedtime., Disp: 90 tablet, Rfl: 3 atorvastatin (Lipitor) 40 mg tablet, Take 1 tablet (40 mg) by mouth in the morning. (Patient not taking: Reported on 02/08/2024), Disp: 90 tablet, Rfl: 3 ezetimibe (Zetia) 10 mg tablet, Take 1 tablet (10 mg) by mouth in the evening., Disp: 90 tablet, Rfl: 3 pravastatin (Pravachol) 10 mg tablet, Take 1 tablet (10 mg) by mouth in the morning., Disp: 90 tablet, Rfl: 3 rosuvastatin (Crestor) 10 mg tablet, Take 1 tablet (10 mg) by mouth in the morning. (Patient not taking: Reported on 10/04/2024), Disp: 90 tablet, Rfl: 3 Recent Labs No visits with results within 6 Month(s) from this visit. Latest known visit with results is: Admission on 08/06/2022, Discharged on 08/06/2022 Component Date Value Ventricular Rate 08/06/2022 72 Atrial Rate 08/06/2022 72 FL Interval 08/06/2022 198 QRS DURATION 08/06/2022 106 QT Interval (more content not included)... [facility] 08-28-2024 Hospital Discharge instructions Patient Education 08/28/2024 12:18:21 Orchiectomy, Care After Orchiectomy, Care After The following information offers guidance on how to care for yourself after your procedure. Your health care provider may also give you more specific instructions. If you have problems or questions, contact your health care provider. What can I expect after the procedure? After the procedure, it is common to have: Pain and bruising in your genital or groin area. Some swelling and redness in your genital or groin area. Fluid pooling in the area where your testicles were removed (seroma). Depression or mood changes. Fatigue. Hot flashes, if both testicles were removed. Follow these instructions at home: Managing pain and swelling If directed, put ice on the affected area. To do this: ?Put ice in a plastic bag. ?Place a towel between your skin and the bag. ?Leave the ice on for 20 minutes, 2 3 times a day. ?Remove the ice if your skin turns bright red. This is very important. If you cannot feel pain, heat, or cold, you have a greater risk of damage to the area. Wear scrotal support as told by your health care provider. To relieve pressure and pain when sitting, you may use a donut cushion if directed by your health care provider. Incision care Follow instructions from your health care provider about how to take care of your incision. Make sure you: ?Wash your hands with soap and water for at least 20 seconds before and after you change your bandage (dressing). If soap and water are not available, use hand oncologist. ?Change your dressing once a day, or as often as told by your health care provider. If the dressing sticks to your incision area: ?Use warm, soapy water to dampen the dressing. ?When the dressing becomes loose, lift it from the incision area. Make sure that the incision stays closed. ?Leave stitches (sutures), skin glue, or adhesive strips in place. These skin closures may need to stay in place for 2 weeks or longer. If adhesive strip edges start to loosen and curl up, you may trim the loose edges. Do not remove adhesive strips completely unless your health care provider tells you to do that. Keep your dressing dry until it is removed. Check your incision area every day for signs of infection. Check for: ?More redness, swelling, or pain. ?More fluid or blood. ?Warmth. ?Pus or a bad smell. Bathing Do not take baths, swim, or use a hot tub until your health care provider approves. You may start taking showers two days after your procedure. Do not rub your incision to dry it. Pat the area gently with a clean cloth or let it air-dry. Medicines Take ghgg-iqt-bqcuerg and prescription medicines only as told by your health care provider. If you had both testicles removed, talk with your health care provider about taking a medicine to replace testosterone. Testosterone is one of the male hormones that your body will no longer make. Ask your health care provider if the medicine prescribed to you: ?Requires you to avoid driving or using machinery. ?Can cause constipation. You may need to take these actions to prevent or treat constipation: ?Drink enough fluid to keep your urine pale yellow. ?Take fwkz-xna-kxjffil or prescription medicines. ?Eat foods that are high in fiber, such as beans, whole grains, and fresh fruits and vegetables. ?Limit foods that are high in fat and processed sugars, such as fried or sweet foods. Activity If you were given a sedative during the procedure, it can affect you for several hours. Do not drive or operate machinery until your health care provider says that it is safe. Rest as told by your health care provider. Avoid activities that may cause your incision to open, such as jogging, playing sports, and straining during a bowel movement. Ask your health care provider what activities are safe for you. Do not lift anything that is heavier than 10 lb (4.5 kg) until your health care provider says that it is safe. Do not engage in sexual activity until the area is healed and your health care provider approves. This could take up to 4 weeks. General instructions Do not use any products that contain nicotine or tobacco. These products include cigarettes, chewing tobacco, and vaping devices, such as e-cigarettes. These can delay incision healing after surgery. If you need help quitting, ask your health care provider. Keep all follow-up visits. This is important. Contact a health care provider if: You have more bruising. You have any of these signs of infection: ?More pain, swelling, or redness in your genital or groin area. ?More fluid or blood coming from your incision. ?Warmth coming from your incision. ?Pus or a bad smell coming from your incision. You have constipation that is not helped by changing your diet or drinking more fluid. You develop nausea or vomiting. You cannot eat or drink without vomiting. Get help right away if: You have dizziness or nausea that does not go away. You have trouble breathing. You have a cough. You have a fever or shaking chills. Your incision breaks open after the skin closures are removed. You are not able to urinate. Summary After this procedure, it is common to have pain and bruising in your genital or groin area, or fluid pooling in the area where your testicles were removed. You should check your incision area every day for signs of infection, such as more redness, swelling, or pain, more fluid or blood, warmth, pus, or a bad smell. Avoid activities that may cause your incision to open, such as jogging, playing sports, and straining with bowel movements. Ask your health care provider what activities are safe for you. You should not engage in sexual activity until the area is healed and your health care provider approves. This could take up to 4 weeks. If you had both testicles removed, talk with your health care provider about taking a medicine to replace testosterone, one of the male hormones that your body will no longer make. This information is not intended to replace advice given to you by your health care provider. Make sure you discuss any questions you have with your health care provider. Document Revised: 01/23/2022 Document Reviewed: 01/23/2022 [employer] Patient Education 2023 [employer]. 08/28/2024 12:18:20 Orchiectomy Orchiectomy An orchiectomy is the removal of one or both testicles. It is most often done to treat cancer of the testicles. Less commonly, it may be done in men with prostate cancer, or to prevent cancer in men whose testicles did not develop normally. An orchiectomy may also be needed when an injury to a testicle cannot be repaired. The testicles can be replaced with artificial testicles (prostheses). Tell a health care provider about: Any allergies you have. All medicines you are taking, including vitamins, herbs, eye drops, creams, and zgkb-idw-etyqbvg medicines. Any problems you or family members have had with anesthetic medicines. Any bleeding disorders you have. Any surgeries you have had. Any medical conditions you have. What are the risks? Generally, this is a safe procedure. However, problems may occur, including: Infection. Bleeding inside the sac that holds the testicles (scrotum). This is called a scrotal hematoma. Pain. Damage to nearby organs or structures, such as the nerves. Discharge from the surgical site. Allergic reactions to medicines. Inability to produce sperm (infertility), if both testicles are removed. Hot flashes, if both testicles are removed. What happens before the procedure? When to stop eating and drinking Follow instructions from your health care provider about what you may eat and drink before your procedure. These may include: ?8 hours before your procedure ?Stop eating most foods. Do not eat meat, fried foods, or fatty foods. ?Eat only light foods, such as toast or crackers. ?All liquids are okay except energy drinks and alcohol. ?6 hours before your procedure ?Stop eating. ?Drink only clear liquids, such as water, clear fruit juice, black coffee, plain tea, and sports drinks. ?Do not drink energy drinks or alcohol. ?2 hours before the procedure ?Stop drinking all liquids. ?You may be allowed to take medicines with small sips of water. Medicines Ask your health care provider about: Changing or stopping your regular medicines. This is especially important if you are taking diabetes medicines or blood thinners. Taking medicines such as aspirin and ibuprofen. These medicines can thin your blood. Do not take these medicines unless your health care provider tells you to take them. Taking xvfk-bbw-fmfsjfo medicines, vitamins, herbs, and supplements. General instructions You may need to collect your sperm in a sperm bank because this procedure can affect your ability to produce sperm (fertility). Ask your health care provider if this is necessary. Do not use any products that contain nicotine or tobacco for at least 4 weeks before the procedure. These products include cigarettes, chewing tobacco, and vaping devices, such as e-cigarettes. If you need help quitting, ask your health care provider. Plan to have someone take you home from the hospital or clinic. Surgery safety Ask your health care provider: ?How your surgery site will be marked. ?What steps will be taken to help prevent infection. These steps may include: ?Removing hair at the surgery site. ?Washing skin with a germ-killing soap. ?Taking antibiotic medicine. What happens during the procedure? An IV will be inserted into one of your veins. You will be given one or more of the following: ?A medicine to help you relax (sedative). ?A medicine to numb the area (local anesthetic). ?A medicine to make you fall asleep (general anesthetic). This procedure may involve removal of one or both testicles. The steps for the procedure will depend on the reason for the procedure. ?If your procedure is for treatment of testicular cancer: ?An incision will be made in the groin. ?The testicle and the spermatic cord will be removed through the groin incision. ?A prosthetic filled with saline may be inserted to fill the space in the scrotum where the testicle was removed. ?If your procedure is for treatment of prostate cancer: ?An incision will be made in the scrotum. ?The testicle will be removed through the incision in the scrotum. ?A prosthetic filled with saline may be inserted to fill the space in the scrotum where the testicle was removed. ?After the removal, the incision will be closed with stitches (sutures), skin glue, or adhesive strips. ?A sterile bandage (dressing) will be applied to the incision site. The procedure may vary among health care providers and hospitals. What happens after the procedure? Your blood pressure, heart rate, breathing rate, and blood oxygen level will be monitored until you leave the hospital or clinic. You will be allowed to go home once you are awake, stable, taking fluids well, and have no other problems. You may have scrotal support. If the scrotal support irritates your incision site, you may remove the support. You will have a sterile dressing. You will be instructed when to remove the dressing and when you can shower. If you were given a sedative during the procedure, it can affect you for several hours. Do not drive or operate machinery until your health care provider says that it is safe. Summary Orchiectomy is a surgical procedure to remove one or both testicles. It is most often done to treat cancer of the testicles. Tell your health care provider about any other medical conditions that you have and the medicines that you take to treat those conditions. Follow instructions from your health care provider about what to eat and drink before the procedure. One or both testicles will be removed. A prosthesis filled with saline may be inserted to fill the space in the scrotum where the testicle was removed. You will be monitored closely after the procedure. Plan to have someone take you home from the hospital or clinic. This information is not intended to replace advice given to you by your health care provider. Make sure you discuss any questions you have with your health care provider. Document Revised: 01/23/2022 Document Reviewed: 01/23/2022 [employer] Patient Education 2023 [employer]. 08/28/2024 12:18:13 Spermatocele Spermatocele A spermatocele is a fluid-filled sac (cyst) inside the sac that holds the testicles (scrotum). This type of cyst often forms in the epididymis. The epididymis is a coiled tube at the top of each testicle, and this tube is where sperm are stored. The cyst sometimes forms along a tube called the vas deferens, which is a tube that carries sperm away from the epididymis. Spermatoceles are usually painless. Most cysts are small, but they can grow larger. Spermatoceles are not cancerous (are benign). What are the causes? The cause of this condition is not known. However, this condition usually results from a blockage in one of the many small tubes (tubules) that carry sperm from your testicle to your vas deferens. What are the signs or symptoms? In most cases, small cysts do not cause symptoms. However, symptoms sometimes occur. Symptoms of this condition include: Dull pain. A feeling of heaviness. An enlarged scrotum, if your cyst is large. How is this diagnosed? This condition is diagnosed based on a physical exam. You or your health care provider may notice your cyst when feeling your scrotum. Your health care provider may shine a light through (transilluminate) your scrotum to see if light will pass through your cyst. You may have an ultrasound of the scrotum to rule out a tumor. How is this treated? Small spermatoceles do not need to be treated. If your spermatocele has grown large or is uncomfortable, your health care provider may recommend surgery to remove it. Follow these instructions at home: Check your spermatocele regularly for any changes. Do regular self-exams of your scrotum. Keep all follow-up visits. This is important. Contact a health care provider if: Your spermatocele gets larger. You have pain in your scrotum. Your spermatocele comes back after treatment. Get help right away if: You experience severe pain and redness of your scrotum. Summary A spermatocele is a fluid-filled sac, or a cyst, inside the sac that holds the testicles (scrotum). This condition is usually painless, and it is not cancerous (is benign). Your health care provider may recommend surgery to remove your spermatocele if it grows large or is uncomfortable. If you have a spermatocele, check for any changes and do self-exams of your scrotum. Keep all follow-up visits. This is important. This information is not intended to replace advice given to you by your health care provider. Make sure you discuss any questions you have with your health care provider. Document Revised: 03/16/2022 Document Reviewed: 03/16/2022 [employer] Patient Education 2023 [employer]. Follow Up Care 06/23/2024 11:28:38 With:HEATHER VELA, Quan Reid, URL Address: [facility] [address] , [place] [address]- [phone] When: Unknown [facility] 08-28-2024 Note Patient Education Oncology Orchiectomy, Care After The following information offers guidance on how to care for yourself after your procedure. Your health care provider may also give you more specific instructions. If you have problems or questions, contact your health care provider. What can I expect after the procedure? After the procedure, it is common to have: ??? Pain and bruising in your genital or groin area. ??? Some swelling and redness in your genital or groin area. ??? Fluid pooling in the area where your testicles were removed (seroma). ??? Depression or mood changes. ??? Fatigue. ??? Hot flashes, if both testicles were removed. Follow these instructions at home: Managing pain and swelling ??? If directed, put ice on the affected area. To do this: ? Put ice in a plastic bag. ? Place a towel between your skin and the bag. ? Leave the ice on for 20 minutes, 2?3 times a day. ? Remove the ice if your skin turns bright red. This is very important. If you cannot feel pain, heat, or cold, you have a greater risk of damage to the area. ??? Wear scrotal support as told by your health care provider. ??? To relieve pressure and pain when sitting, you may use a donut cushion if directed by your health care provider. Incision care ??? Follow instructions from your health care provider about how to take care of your incision. Make sure you: ? Wash your hands with soap and water for at least 20 seconds before and after you change your bandage (dressing). If soap and water are not available, use hand oncologist. ? Change your dressing once a day, or as often as told by your health care provider. If the dressing sticks to your incision area: ? Use warm, soapy water to dampen the dressing. ? When the dressing becomes loose, lift it from the incision area. Make sure that the incision stays closed. ? Leave stitches (sutures), skin glue, or adhesive strips in place. These skin closures may need to stay in place for 2 weeks or longer. If adhesive strip edges start to loosen and curl up, you may trim the loose edges. Do not remove adhesive strips completely unless your health care provider tells you to do that. ??? Keep your dressing dry until it is removed. ??? Check your incision area every day for signs of infection. Check for: ? More redness, swelling, or pain. ? More fluid or blood. ? Warmth. ? Pus or a bad smell. Bathing ??? Do not take baths, swim, or use a hot tub until your health care provider approves. You may start taking showers two days after your procedure. ??? Do not rub your incision to dry it. Pat the area gently with a clean cloth or let it air-dry. Medicines ??? Take sozf-eiz-pwegare and prescription medicines only as told by your health care provider. ??? If you had both testicles removed, talk with your health care provider about taking a medicine to replace testosterone. Testosterone is one of the male hormones that your body will no longer make. ??? Ask your health care provider if the medicine prescribed to you: ? Requires you to avoid driving or using machinery. ? Can cause constipation. You may need to take these actions to prevent or treat constipation: ? Drink enough fluid to keep your urine pale yellow. ? Take xcdd-oub-gyhcaod or prescription medicines. ? Eat foods that are high in fiber, such as beans, whole grains, and fresh fruits and vegetables. ? Limit foods that are high in fat and processed sugars, such as fried or sweet foods. Activity ??? If you were given a sedative during the procedure, it can affect you for several hours. Do not drive or operate machinery until your health care provider says that it is safe. ??? Rest as told by your health care provider. ??? Avoid activities that may cause your incision to open, such as jogging, playing sports, and straining during a bowel movement. Ask your health care provider what activities are safe for you. ??? Do not lift anything that is heavier than 10 lb (4.5 kg) until your health care provider says that it is safe. ??? Do not engage in sexual activity until the area is healed and your health care provider approves. This could take up to 4 weeks. General instructions ??? Do not use any products that contain nicotine or tobacco. These products include cigarettes, chewing tobacco, and vaping devices, such as e-cigarettes. These can delay incision healing after surgery. If you need help quitting, ask your health care provider. ??? Keep all follow-up visits. This is important. Contact a health care provider if: ??? You have more bruising. ??? You have any of these signs of infection: ? More pain, swelling, or redness in your genital or groin area. ? More fluid or blood coming from your incision. ? Warmth coming from your incision. ? Pus or a bad smell coming from your incision. ??? You have constipation that is not helped by changing your diet or drinking more fluid. ??? You d (more content not included)... [facility] 02-08-2024 Note Cardiology Clinic No te Chief Complaint: Clinic follow up HPI: Jah Byers is a 58 y.o. male with a past medical history including hypertension, previous tobacco abuse, and hydrocele who was referred to Cardiology clinic for Perioperative risk stratification prior to hydrocelectomy. Cardiac stress test was ordered as part of perioperative restratification, and stress test was found to be abnormal. Patient underwent cardiac cath. He was noted to have mild, nonobstructive coronary artery disease. He presents today for follow-up. Patient adamantly denies any cardiac complaints or concerns. Patient denies any chest pain or shortness of breath. Patient denies any lower extremity edema, orthopnea, or proximal nocturnal dyspnea. No near-syncope or syncope. No dizziness or lightheadedness. Bp is above target range in clinic. Cardiology ROS: GENERAL: Denies fever, chills, night sweats, weight loss. HEENT: Denies changes in vision, photophobia, changes in hearing, epistaxis, oral bleeding. CARDIOVASCULAR: Denies chest pain, exertional dyspnea, orthopnea/PND, lower extremity edema, palpitations, lightheadedness/dizziness. RESPIRATORY: Denies SOB, coughing, wheezing GI: Denies abdominal pain, nausea/vomiting, heartburn, melena/hematochezia. RENAL: Denies dysuria, hematuria, flank pain. MSK: Denies muscle weakness/pain, arthralgias/joint pain. NEUROLOGIC: Denies LOC, weakness, numbness, headaches. SKIN: Denies abnormal rashes or bleeding. PSYCH: Denies significant anxiety, depression, sleep disturbances. Past Medical History He has a past medical history of Abnormal ECG, Allergic rhinitis, Chronic sinusitis, Coronary artery disease, Disorder of male genital organs, History of kidney stones, Hydrocele, Hyperlipidemia, Hypertension, Hypogonadism male, Left inguinal hernia, and Varicocele. Surgical History He has a past surgical history that includes Hernia repair; Cardiac catheterization; and Excision / repair hydrocele pediatric. Social History He reports that he has quit smoking. His smoking use included cigarettes. He uses smokeless tobacco. He reports current alcohol use. He reports that he does not use drugs. Family History Family History Problem Relation Name Age of Onset Stroke Mother Clotting disorder Mother Hypertension Father Hypertension Sister Medications Current Outpatient Medications on File Prior to Visit Medication Sig Dispense Refill amLODIPine (Norvasc) 10 mg tablet Take 1 tablet (10 mg) by mouth in the morning. 90 tablet 3 aspirin 325 mg tablet Take 325 mg by mouth 1 (one) time. carvedilol (Coreg) 6.25 mg tablet Take 1 tablet (6.25 mg) by mouth with breakfast and with evening meal. 180 tablet 3 amLODIPine (Norvasc) 10 mg tablet Take 1 tablet (10 mg) by mouth in the morning. 90 tablet 3 atorvastatin (Lipitor) 40 mg tablet Take 1 tablet (40 mg) by mouth at bedtime. (Patient not taking: Reported on 02/08/2024) 90 tablet 3 atorvastatin (Lipitor) 40 mg tablet Take 1 tablet (40 mg) by mouth in the morning. (Patient not taking: Reported on 02/08/2024) 90 tablet 3 carvedilol (Coreg) 3.125 mg tablet Take 1 tablet (3.125 mg) by mouth with breakfast and with evening meal. (Patient not taking: Reported on 02/08/2024) 180 tablet 3 No current facility-administered medications on file prior to visit. Allergies Atorvastatin, Guaifenesin, and Ciprofloxacin Physical Exam VITAL SIGNS: BP 136/90 (BP Location: Right arm, Patient Position: Sitting) Pulse 67 Ht 1.854 m (6' 1 ) Wt 101 kg (222 lb) SpO2 99% BMI 29.29 kg/m??? Constitutional: Well developed, Well nourished, No acute distress, Non-toxic appearance. HENT: Normocephalic, Atraumatic, Bilateral external ears have normal appearance, Bilateral TMs clear, Oropharynx moist, No oral or pharyngeal exudates, Nose appears normal, nares are patent. Eyes: PERRLA, EOMI, Conjunctiva normal, No discharge. Neck: Normal range of motion, No tenderness, Supple, No stridor. No cervical lymphadenopathy noted. Cardiovascular: Normal heart rate, Normal rhythm, No murmurs, No rubs, No gallops. Thorax & Lungs: Normal breath sounds, No respiratory distress, No wheezing, No chest tenderness to palpation. Abdomen: Bowel sounds normal, Soft, Nontender, No masses, No pulsatile masses. Skin: Warm, Dry, No erythema, No rash. Back: No tenderness, No CVA tenderness. Extremities: Intact distal pulses, No edema, No tenderness, No cyanosis, No clubbing. Musculoskeletal: Good range of motion in all major joints with 5/5 muscle strength in all muscle groups, No tenderness to palpation or major deformities noted. Neurologic: Alert & oriented x 3, Normal motor function in all major muscle groups, Normal sensory function to all major dermatomes, No focal deficits noted. Psychiatric: Affect normal, Judgment normal, Mood normal. EKG results: EKG on 04/15/2022: Q waves in lead is 3, aVF concerning for old inferior (more content not included)... [facility] 07-21-2023 Hospital Discharge instructions Patient Education 07/21/2023 10:36:48 Hydrocele, Adult Hydrocele, Adult A hydrocele is a collection of fluid in the loose pouch of skin that holds the testicles (scrotum). It can occur in one or both testicles. This may happen because: The amount of fluid produced in the scrotum is not absorbed by the rest of the body. Fluid from the abdomen fills the scrotum. Normally, the testicles develop in the abdomen and then drop into the scrotum before . The tube that the testicles travel through usually closes after the testicles drop. If the tube does not close, fluid from the abdomen can fill the scrotum. This is not very common in adults. What are the causes? A hydrocele may be caused by: An injury to the scrotum. An infection. Decreased blood flow to the scrotum. Twisting of a testicle (testicular torsion). A defect. A tumor or cancer of the testicle. Sometimes, the cause is not known. What are the signs or symptoms? A hydrocele feels like a water-filled balloon. It may also feel heavy. Other symptoms include: Swelling of the scrotum. The swelling may decrease when you lie down. You may also notice more swelling at night than in the morning. This is called a communicating hydrocele, in which the fluid in the scrotum goes back into the abdominal cavity when the position of the scrotum changes. Swelling of the groin. Mild discomfort in the scrotum. Pain. This can develop if the hydrocele was caused by infection or twisting. The larger the hydrocele, the more likely you are to have pain. Swelling may also cause pain. How is this diagnosed? This condition may be diagnosed based on a physical exam and your medical history. You may also have tests, including: Imaging tests, such as an ultrasound. A transillumination test. This test takes place in a dark room where a light is placed on the skin of the scrotum. Clear liquid will not impede the light and the scrotum will be illuminated. This helps a health care provider distinguish a hydrocele from a tumor. Blood or urine tests. How is this treated? Most hydroceles go away on their own. If you have no discomfort or pain, your health care provider may suggest close monitoring of your condition until the condition goes away or symptoms develop. This is called watch and wait or watchful waiting. If treatment is needed, it may include: Treating an underlying condition. This may include taking an antibiotic medicine to treat an infection. Having surgery to stop fluid from collecting in the scrotum. Having surgery to drain the fluid. Surgery may include: ?Hydrocelectomy. For this procedure, an incision is made in the scrotum to remove the fluid. ?Needle aspiration. A needle is used to drain fluid. However, the fluid buildup will come back quickly and may lead to an infection of the scrotum. This is rarely done. Follow these instructions at home: Medicines Take bmcp-fzq-norpkjs and prescription medicines only as told by your health care provider. If you were prescribed an antibiotic medicine, take it as told by your health care provider. Do not stop taking the antibiotic even if you start to feel better. General instructions Watch the hydrocele for any changes. Keep all follow-up visits. This is important. Contact a health care provider if: You notice any changes in the hydrocele. The swelling in your scrotum or groin gets worse. The hydrocele becomes red, firm, painful, or tender to the touch. You have a fever. Get help right away if you: Develop a lot of pain or your pain becomes worse. Have chills. Have a high fever. Summary A hydrocele is a collection of fluid in the loose pouch of skin that holds the testicles (scrotum). A hydrocele can cause swelling, discomfort, and pain. In adults, the cause of a hydrocele may not be known. However, it is sometimes caused by an infection or the twisting of a testicle. Hydroceles often go away on their own. If a hydrocele causes pain, treating the underlying cause may be needed to ease the pain. This information is not intended to replace advice given to you by your health care provider. Make sure you discuss any questions you have with your health care provider. Document Revised: 03/12/2022 Document Reviewed: 03/12/2022 [employer] Patient Education 2022 [employer]. Follow Up Care 04/21/2023 13:57:12 With:HEATHER VELA, Quan Reid, URL Address: [facility] [address] , [place] [address]- When: Unknown [facility] 04-21-2023 Hospital Discharge instructions Patient Education 04/21/2023 13:55:12 Hydrocele, Adult Hydrocele, Adult A hydrocele is a collection of fluid in the loose pouch of skin that holds the testicles (scrotum). It can occur in one or both testicles. This may happen because: The amount of fluid produced in the scrotum is not absorbed by the rest of the body. Fluid from the abdomen fills the scrotum. Normally, the testicles develop in the abdomen and then drop into the scrotum before . The tube that the testicles travel through usually closes after the testicles drop. If the tube does not close, fluid from the abdomen can fill the scrotum. This is not very common in adults. What are the causes? A hydrocele may be caused by: An injury to the scrotum. An infection. Decreased blood flow to the scrotum. Twisting of a testicle (testicular torsion). A defect. A tumor or cancer of the testicle. Sometimes, the cause is not known. What are the signs or symptoms? A hydrocele feels like a water-filled balloon. It may also feel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 ease the pain. This information is not intended to replace advice given to you by your health care provider. Make sure you discuss any questions you have with your health care provider. Document Released: 01/13/2011 Document Revised: 08/06/2018 Document Reviewed: 08/06/2018 [employer] Patient Education 2020 [employer]. Follow Up Care 10/30/2021 13:48:02 With:Quan CASTELLANOS MD, URL Address: [facility] [address], [place] [phone] When:02/27/2022 [facility] evaluation + Plan note Future Appointments Appointment Date:03/06/2022 08:15:00 AM Scheduled Provider:Quan CASTELLANOS MD [facility] App[facility] Type:URO Office Visit Diagnostic Tests Pending * PSA Total 11/28/21 [facility] evaluation + Plan note Future Appointments Appointment Date:02/05/2023 08:30:00 AM Scheduled Provider:Quan CASTELLANOS MD [facility] Appointment Type:URO Office Visit [facility] evaluation + Plan note Future Appointments Appointment Date:04/23/2023 09:15:00 AM Scheduled Provider:Quan CASTELLANOS MD [facility] Appointment Type:URO Office Visit [facility] evaluation + Plan note Future Appointments Appointment Date:04/28/2023 08:00:00 AM Scheduled Provider: Location:[facility] [place] Appointment Type:URO Nurse Visit Appointment Date:07/21/2023 09:30:00 AM Scheduled Provider:Quan CASTELLANOS MD Location:[facility] [place] Appointment Type:URO Office Visit [facility] evaluation + Plan note Future Appointments Appointment Date:07/21/2023 09:30:00 AM Scheduled Provider:Quan CASTELLANOS MD Location:[facility] [place] Appointment Type:URO Office Visit [facility] Evaluation + Plan note Future Appointments Appointment Date:07/21/2023 09:30:00 AM Scheduled Provider:Quan CASTELLANOS MD Location:[facility] Appointment Type:URO Office Visit Diagnostic Tests Pending * [facility]ments Appointment Date:11/03/2024 09:15:00 AM Scheduled Provider:Quan CASTELLANOS MD Location:[facility] Appointment Type:URO Office Visit [facility] History general Narrative - Reported* Type Description Date Medical History bronchiolitis Medical History kidney stones Medical History hypertension Surgical History rt knee surgery Surgical History hernia surgery Hospitalization History see surgery [employer] Other Hospital course Narrative No data available for this section [facility] Hospital Discharge instructions No data available for this section [facility] Progress note No data available for this section [facility] Summary Purpose Family History No Family History Records Found No data available for this section No data available for this section No data available for this section No Family History Records FoundNo Family History Records Found No data available for this section No data available for this section No Family History Records FoundNo Family History Records FoundNo Family History Records Found Advance Directives No Advanced Directives Records FoundNo Advanced Directives Records FoundNo Advanced Directives Records FoundNo Advanced Directives Records FoundNo Advanced Directives Records FoundNo Advanced Directives Records Found Additional Source Comments Care Team (unrecognized sect ion and content) Personnel Name: ALMA ADORNO MD Address: [address] [place] [address] Personnel Name: ALMA ADORNO MD Address: Address: [address] [place] [address] Personnel Name: ALMA ADORNO MD Address: Address: [address] [place] [address] Personnel Name: ALMA ADORNO MD Address: Address: [address] [place] [address], [place] [address]- [place] Personnel Name: ALMA ADORNO MD Address: Address: [address] [place] [address] [place] Personnel Name: ALMA ADORNO MD Address: Address: [address] [place] [address] [place] Personnel Name: ALMA ADORNO MD Address: Address: [address] [place] [address]- [place] Personnel Name: ALMA ADORNO MD Address: Address: [address] [place] [address]- [place] Personnel Name: ALMA ADORNO MD Address: Address: [address] [place] [address]- [place] Personnel Name: ALMA ADORNO MD Address: Address: [address] [place] [address]- [place] Personnel Name: ALMA ADORNO MD Address: Address: [address] [place] [address]- [place] REASON FOR VISIT (unrecogniz ed section and content) referred by Dr. Adorno Neck Pain (unrecognized sect ion and content) No Status Records FoundNo Status Records FoundNo Status Records FoundNo Status Records FoundNo Status Records FoundNo Status Records Found INFORMATION SOURCE (unrecogn ized section and content) DATE CREATED AUTHOR 10/17/2022 [facility] DATE CREATED AUTHOR AUTHOR'S ORGANIZ ATION 08/29/2024 [facility] DATE CREATED AUTHOR AUTHOR'S ORGANIZ ATION 09/14/2024 [facility] DATE CREATED AUTHOR AUTHOR'S ORGANIZ ATION 09/20/2024 [facility] DATE CREATED AUTHOR AUTHOR'S ORGANIZ ATION 10/06/2024 [facility] DATE CREATED AUTHOR AUTHOR'S ORGANIZ ATION 10/07/2024 [facility] FOR RECORDS PERTAINING TO PATIENTS WHO ARE OR HAVE BEEN ENROLLED IN A CHEMICAL DEPENDENCY/SUBSTANCEABUSE PROGRAM, SOME INFORMATION MAY BE OMITTED. This clinical summary was aggregated from multiple sources. Caution should be exercised in using it in the provision of clinical care. This summary normalizes information from multiple sources, and as a consequence, information in this document may materially change the coding, format and clinical context of patient data. In addition, data may be omitted in some cases. CLINICAL DECISIONS SHOULD BE BASED ON THE PRIMARY CLINICAL RECORDS. [facility] [employer] [facility] provides no warranty or guarantee of the accuracy or completeness of information in this document.
[2024-10-12] MEDS: CEFAZOLIN SODIUM 2 GM/50 ML D5W PREMIX IV (11:23)
[2024-10-12] MEDS: LACTATED RINGER'S SOLUTION 1,000 ML 50 ML IV ×2 (11:23→13:30)
[2024-10-12] MEDS: GENTAMICIN SULFATE 120 MG in 0.9 % SODIUM CHLORIDE 100 ML 206 MG IV (12:17)
--- NOTE | 2024-10-12 12:17 | US_ITS ---
The [address] [address] Patient Name: MOLLY BYERS MRN: [id number] date: 1965 Sex: M Assigned Patient Location: [facility] Current Patient Location: Accession/Order Number: [id number] Exam Date: 10/12/2024 16:52 Report Date: 10/12/2024 16:54 At the request of: JOSÉ MIGUEL ROMERO MD Procedure: US prostate Prostate biopsy. Reason for exam: Elevated PSA. FINDINGS: Prostate biopsy was performed by the urology service. No radiologist was present at time of procedure. The prostate gland measures 4.7 x 2.6 x 5.4 cm right prostate volume of 35 mL. Predicted PSA is 4.23. US/US prostate Impression: Prostate biopsy. Impression dictated by: Tammi Piper Jr.OAdams10/12/2024 4:54 PM Dictation Location: [place] [address] Electronically authenticated by: [id number] Y Date: 10/12/2024 16:54
[2024-10-12] MEDS: LIDOCAINE 2% JELLY 10 ML UR (12:40)
[2024-10-12] MEDS: BACITRACIN OINTMENT 28.4 GM TUBE 1 APPLIC TOPICAL (13:52)
--- NOTE | 2024-10-12 14:21 | PM.URSON ---
Urology Surgery Operative Note Operative Note Procedure Date: 10/12/24 Time Out Performed: yes Pre-op Diagnosis: 1. Elevated PSA. 2. Left spermatocele Post-op Diagnosis: same as pre-op Procedures performed: 1. Transrectal ultrasound with biopsies of the prostate. 2. Left simple orchiectomy. Anesthesia: GETA Primary Surgeon: Quan Castellanos Complications: None Estimated blood loss (mL): 5 Findings: 1.. Discrete hypoechoic nodule in the right mid aspect of the prostate. 2. Multiple needle stick mariano on the cephalad portion of the tunica Albuginea Specimens: 1. Prostate needle biopsies. 2. Left testicle epididymis and spermatic cord Drains: None Indications for Procedures: This gentleman has an elevated PSA of 2.6 with a low free percent fraction and a left spermatocele that he has been draining every 4 to 5 days for a couple years. He now presents for transrectal ultrasound with biopsies of the prostate and left simple orchiectomy (patient's preference). He has signed an informed consent after risks were explained. Detailed description of Procedure: The patient was brought to the operating room and placed on the operating room table in the supine position. SCDs were placed on the lower extremities and turned on and functioning during the entire case. Timeout was done by all parties in the room. We all agreed upon the patient's identification and the planned procedures for this patient. Genn. anesthesia was then administered. We then rotated the patient in the left lateral decubitus position. The patient's rectum was swabbed with Betadine sponges 3 times. 2% lidocaine gel was passed per rectum. The ultrasound probe was passed per rectum. The prostate was scanned in the transverse and sagittal views. The volume was calculated to be 35 g. A very obvious discrete hypoechoic nodule was noted at the mid right aspect of the prostate. There were also diffuse calcifications noted on this side. We then began taking transrectal biopsies of the prostate starting at the left base and going towards the apex. We divided it up into 4 levels and from each level took 2 cores. We then started to do the same maneuver on the right side. We took an extra biopsy from the second and third level obtaining a total of 10 biopsies from the right side. 8 biopsies were obtained from the left side. The ultrasound probe was then removed. The patient was then rotated in the supine position. The patient's abdomen and genitalia were sterilely prepped and draped in the usual fashion. I started by making a left hemiscrotal transverse incision with a 15 blade scalpel. Sharp dissection was carried down through the layers. The left hemiscrotal contents were severely adhered to the scrotal wall from prior surgery and repeated needle aspirations done by the patient. Sharp and blunt dissection had to be carried out very tediously and meticulously around to the hemiscrotal contents to free it up from the gubernaculum. Once this was done I then was able to sharply dissect down to the tense fluid-filled spermatocele. I then incised the spermatocele sac and a small amount of fluid was obtained. As I opened it up with the dissecting scissors 1 could see the upper pole of the testicle had multiple stab wounds from the repeated needle aspirations done by the patient. I then freed up the spermatic cord down to to the external ring. The cord was clamped doubly with Ani clamps. I then used a CAROLE stapler and transected the cord with a 3 row staple line. The testicle epididymis and the left spermatic cord were sent for permanent sections. The stump was coagulated with the Bovie cautery. As the Ani was released it did not bleed. The left hemiscrotum was then irrigated and tiny bleeders were coagulated with the needle tip Bovie cautery. Once there was perfect hemostasis and I rechecked the spermatic cord stump and found no bleeding, we then began closure. The dartos layer was closed with 3-0 Vicryl in a running fashion. The skin was closed with 4-0 Vicryl in a running fashion. Bacitracin ointment was applied to the suture line. Fluffs and scrotal support were then applied. The anesthetic was then reversed. He was then transferred to a [facility] bed and wheeled to PACU in stable condition. He will continue his oral Cipro antibiotics at home. A prescription for ketorolac will be sent. Follow-up will be within 2 weeks to review the pathology from the prostate biopsies and from the orchiectomy.
--- NOTE | 2024-10-12 14:45 | PC.NURSE ---
Moist cough upon arrival to PACU
--- NOTE | 2024-10-12 14:47 | PC.NURSE ---
Cough less frequent
--- NOTE | 2024-10-12 15:30 | PC.NURSE ---
Denies urge to void; infrequent moist cough noted
== END 2024-10-12 16:20 | disposition home or self-care (01) ==
PROVIDERS: Visit Provider Urology
PROC: (CPT 00902; principal; 2024-10-12 12:00)
PROC: (CPT 00902; 2024-10-12 12:00)
DX: R97.20 Elevated prostate specific antigen [PSA] (principal); N43.40 Spermatocele of epididymis, unspecified; I10 Essential (primary) hypertension; N40.2 Nodular prostate without lower urinary tract symptoms; Z87.442 Personal history of urinary calculi; E29.1 Testicular hypofunction; Z87.891 Personal history of nicotine dependence; E78.5 Hyperlipidemia, unspecified; I25.10 Atherosclerotic heart disease of native coronary artery without angina pectoris; K21.9 Gastro-esophageal reflux disease without esophagitis
CPT/HCPCS: 00902; 00920; 54520; 55700; 36415; 76872; J0690; J1100; J1580; J1885; J2250; J2405; J2704; J3010